=== PATIENT | female | born 1940 | race Caucasian/White ===

== ENCOUNTER → 2016-11-05 | Outpatient (CLI) | payer MEDICARE, OTHER ==
[~2016-11-05] MED LIST: MOTR200T47
[2016-11-05 11:14] LABS: BLOOD GAS BASE EXCESS 7.8 mmol/L (-2-2); BLOOD GAS CARBOXYHEMOGLOBIN 6.8 % (0-4); BLOOD GAS HCO3 33 mmol/L (22-26); BLOOD GAS METHEMOGLOBIN 1.1 % (0-2); BLOOD GAS O2 HGB SATURATION 81 % (90-100); BLOOD GAS OXYGEN CONTENT 11.7 Vol % (12.0-20.0); BLOOD GAS PCO2 57 mmHg (38-42); BLOOD GAS PO2 56 mmHg (61-120); BLOOD GAS TOTAL HGB 10.2 G/DL (12.0-16.0); CRITICAL VALUE YES; FIO2 21 %; TEMP CORR TO 98.6
[2016-11-05 11:15] LABS: DRAW SITE LT RADIAL; NUMBER OF ARTERIAL PUNCTURES 1; STAT NO; ULNAR PULSE PRESENT
--- NOTE | 2016-11-27 10:36 | RSPPFT ---
DATE OF PROCEDURE: 11/05/16 COMMENTS: Spirometry with FVC of 1.1, FEV1 of 0.5, FEV1/FVC ratio at 49%. A positive and significant response to acutely inhaled bronchodilator noted. Slow vital capacity is 41% of predicted. TLC is 94%. Diffusion capacity is 36% of predicted and normal when corrected for alveolar volume. Room air arterial blood gases show pH of 7.38, PCO2 of 57, PO2 of 56. IMPRESSION: 1. Severe airways obstruction. 2. Positive and significant response to acutely inhaled bronchodilator. 3. No evidence of airways restriction. 4. Severe reduction in diffusion capacity. 5. Hypoxic and hypercarbic respiratory failure.
== END ==
LOC: HRSP 10:26
PROVIDERS: ATTEND Internal Medicine Sleep Medicine
DX: I50.9 Heart failure, unspecified (principal); R06.89 Other abnormalities of breathing
CPT/HCPCS: 36600; 82805; 94060; 94726; 94729

== ENCOUNTER → 2017-08-20 | Day surgery (SDC) | payer MEDICARE, OTHER ==
[~2017-08-20] VITALS: Ht 157.5 cm; Wt 38.0 kg
[~2017-08-20] MED LIST changes: +ATOR40TA16 PO; +CETI10CA3 PO; +CHLORHEXIDINE GLUCONATE 2 % 1 PACK (2 CLOTHS) TOPICAL PRN; +COLA100C5 PO; +FLUT1INH INH; +FURO20TA PO; +HYALURONIDASE/LIDOCAINE/BUPIVACAINE 5 ML SYR LEFT EYE ONE; +LACTATED RINGER'S 1000 ML IV PRN; +LIDOCAINE HCL 1% PF 30 ML VIAL ONE; +LIDOCAINE HCL 2% PF 5 ML VIAL ONE; +METOPROLOL TARTRATE 25 MG TAB PO PRN; -MOTR200T47; +MULTTAB67 PO; +POVIDONE IODINE 5% (ANTISEPSIS KIT) 4 APPLICATIONS EACH NARE PRN; +PROPARACAINE HCL 0.5% OPHT SOLN 15 ML BTL LEFT EYE ONE; +PROPOFOL 200 MG/20 ML AMP ONE; +SLOW50TA PO; +SODIUM CHLORID 0.9% 500 ML IV PRN; +TOBRAMYCIN/DEXAMETHASONE OPTH OINT 3.5 GM TUBE ONE
[2017-08-20 07:15] VITALS: PULSE 71
[2017-08-20] MEDS: FLURBIPROFEN 0.03% OPHT SOLN 2.5 ML BTL LEFT EYE SCH ×4 (07:15→07:30)
[2017-08-20] MEDS: CYCLOPENTOLATE HCL 1% OPHT SOLN 2 ML BTL LEFT EYE SCH ×4 (07:15→07:30)
[2017-08-20] MEDS: PHENYLEPHRINE HCL 10% OPTH SOLN 5 ML BTL LEFT EYE SCH ×4 (07:15→07:30)
[2017-08-20] MEDS: TROPICAMIDE 1% OPHT SOLN 15 ML BTL LEFT EYE SCH ×4 (07:15→07:30)
[2017-08-20 07:50] VITALS: PULSE 71
[2017-08-20 09:00] VITALS: TEMP 98
[2017-08-20 09:25] VITALS: BP 160/82; PULSE 79; RESP 14; O2SAT 95
--- NOTE | 2017-08-20 13:06 | MP ---
cc: NEVILLE HUYNH M.D. [facility] #[id number] DATE OF SURGERY 08/20/2017 PREOPERATIVE DIAGNOSIS Visually significant cataract left eye. POSTOPERATIVE DIAGNOSIS Visually significant cataract left eye. OPERATION Phacoemulsification with posterior chamber lens implantation, left eye. SURGEON Neville Huynh MD ANESTHESIA Retrobulbar with MAC. COMPLICATIONS None PROCEDURE After informed consent was obtained, the patient was brought into the operative suite and placed on appropriate monitors by the Anesthesia Service. The patient had received a prior retrobulbar injection of local anesthetic by the Anesthesia Service in the holding area. The patient's operative eye was then prepped and draped in the usual sterile fashion. A wire lid speculum was placed. A paracentesis incision was made in the peripheral cornea with a 1 mm todd keratome. The anterior chamber was filled with viscoelastic. The anterior chamber was then entered through a stepped, clear corneal incision using a sharp 3 mm todd keratome. A circular tear capsulorrhexis was then made with a bent needle cystitome. Following hydrodissection of the lens nucleus with balanced saline, phacoemulsification of the nucleus was performed using a modified chopping technique. The remaining cortex was removed with irrigation/aspiration. The prior two procedures were both performed using the handpieces of the [employer] phaco unit. The capsular bag was then filled with viscoelastic. The intraocular lens was then injected into the capsular bag and positioned. The type of intraocular lens and its power can be found elsewhere in this chart. The remaining viscoelastic was then removed from the anterior chamber with the IA handpiece. The anterior chamber was reformed with balanced saline. The wound was then closed securely with stromal hydration. It was found to be watertight to an intraocular pressure of at least 30 mmHg by palpation. A small amount of balanced salt solution was then removed through the paracentesis site and the intraocular pressure at the end of the case was approximately 20 by palpation. All drapes were then removed. TobraDex ointment was then placed in the eye, which was closed beneath a semi-pressure patch dressing. The patient tolerated this procedure well and left the operating room awake and alert. The patient is to follow-up in my office in the morning. MD MERLINE Wolfe/[place] /10:44 AM /12:53 PM
== END | disposition home or self-care (01) ==
LOC: PHSDC 06:20
PROVIDERS: ATTEND Optometrist Occupational Vision
DX: H25.12 Age-related nuclear cataract, left eye (principal)
CPT/HCPCS: 00142; 66984; J7040; V2632